=== PATIENT | male | born 1990 | race Caucasian/White ===

== ENCOUNTER 2019-01-30 20:34 | Emergency (ER) | payer OTHER ==
--- NOTE | 2019-01-30 22:01 | EKG REPORT ---
SEVERITY:- NORMAL ECG - SINUS RHYTHM : Confirmed by: Jovanny Thomas MD 30-Jan-2019 22:00:54
[2019-01-30 23:20] LABS: ABSOLUTE EOSINOPHILS # (AUTO) 0.2 10^3/uL (0.0-0.6); ABSOLUTE MONOCYTES (AUTO) 0.4 10^3/uL (0.1-1.4); ABSOLUTE NEUT (AUTO) 2.8 10^3/uL (1.7-8.2); BASOPHILS % (AUTO) 0.8 % (0-2); EOSINOPHILS % (AUTO) 3.3 % (0-6); HEMATOCRIT 39.9 % (37.9-51.0); HEMOGLOBIN 13.8 g/dL (13.5-17.0); LYMPHOCYTES % (AUTO) 37.2 % (13-45); MEAN CORPUSCULAR HEMOGLOBIN 30.5 pg (27.0-33.4); MEAN CORPUSCULAR HGB CONC 34.5 g/dL (32.0-36.0); MEAN CORPUSCULAR VOLUME 88 fl (80-97); MONOCYTES % (AUTO) 6.7 % (3-13); PLATELET COUNT 189 10^3/uL (150-450); RED BLOOD COUNT 4.52 10^6/uL (4.35-5.55); RED CELL DISTRIBUTION WIDTH 12.9 % (11.5-14.0); TOTAL CELLS COUNTED % (AUTO) 100 %; WHITE BLOOD COUNT 5.4 10^3/uL (4.0-10.5)
[2019-01-30 23:32] LABS: ALBUMIN 4.7 g/dL (3.5-5.0); ALCOHOL 131 mg/dL (NONE DETECTED); ALKALINE PHOSPHATASE 49 U/L (38-126); ANION GAP 13 (5-19); ASPARTATE AMINO TRANSFERASE 25 U/L (17-59); BILIRUBIN,DIRECT 0.2 mg/dL (0.0-0.4); BILIRUBIN,TOTAL 0.7 mg/dL (0.2-1.3); BLOOD UREA NITROGEN 10 mg/dL (7-20); CALCIUM 9.2 mg/dL (8.4-10.2); CARBON DIOXIDE 25 mmol/L (22-30); CHLORIDE 104 mmol/L (98-107); GLUCOSE 91 mg/dL (75-110); POTASSIUM 3.7 mmol/L (3.6-5.0)
[2019-01-30 23:35] LABS: ACETAMINOPHEN < 10 ug/mL (10-30); SALICYLATE < 1.0 mg/dL (2.0-20.0)
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
[2019-01-31 04:44] LABS: APPEARANCE,URINE CLEAR; BILIRUBIN,URINE NEGATIVE (NEGATIVE); COLOR,URINE YELLOW; GLUCOSE, URINE NEGATIVE (NEGATIVE); KETONES,URINE NEGATIVE (NEGATIVE); LEUKOCYTE ESTERASE,URINE NEGATIVE (NEGATIVE); NITRITE,URINE NEGATIVE (NEGATIVE); PROTEIN,URINE NEGATIVE (NEGATIVE); URINE SPECIFIC GRAVITY 1.013; UROBILINOGEN,URINE NEGATIVE mg/dL (<2.0)
[2019-01-31 04:48] LABS: URINE AMPHETAMINES SCREEN NEGATIVE; URINE BARBITURATES SCREEN NEGATIVE; URINE BENZODIAZEPINES SCREEN NEGATIVE; URINE COCAINE SCREEN NEGATIVE; URINE MARIJUANA (THC) SCREEN NEGATIVE; URINE METHADONE SCREEN NEGATIVE; URINE PHENCYCLIDINE SCREEN NEGATIVE
--- NOTE | 2019-01-31 10:37 | ER Document Report ---
Doctor's Note Notes: 01/31/19 10:35 Rounds: Heart reviewed and patient interviewed. Patient being evaluated for suicidal ideation and depression. He was drinking alcohol last night and had a loaded gun and was threatening to kill himself. He has a history of TBI and PTSD. Says he does not feel suicidal this morning. Wishes to go home to be with his and child. Vital signs are all normal. Lab studies were normal with the exception of his blood alcohol of 131. Patient appears to be medically stable for transfer or discharge. Jomar Meneses MD
[2019-01-31] MEDS: BUSPIRONE HCL 10 MG TABLET PO SCH (17:29)
[2019-01-31] MEDS: VENLAFAXINE HCL 37.5 MG CAP.SR.24H PO SCH (17:30)
[2019-01-31] MEDS ORDERED: CLONIDINE HCL 0.1 MG TABLET PO SCH (22:00)
[2019-02-01 06:37] VITALS: BP 113/61
[2019-02-01] MEDS: VENLAFAXINE HCL 37.5 MG CAP.SR.24H PO SCH (09:19)
[2019-02-01] MEDS: BUSPIRONE HCL 10 MG TABLET PO SCH (09:19)
--- NOTE | 2019-02-01 13:03 | PSYCHOLOGICAL NOTE ---
Psych Note - Psych Note Date seen by psych provider: 01/31/19 Psych Note: Presenting Problem: Patient reported Hx of PTSD, had SI thoughts while holding loaded gun in lap, walked in took gun and brought patient to the ED. Patient denied current SI and stated he just wanted to get home to his and 3 year old child. He reported "I just get like that sometimes because of [place]." Patient alert and oriented x5 with linear thinking, depressed mood with flat affect, able to answer questions accordingly, somewhat guarded and not forth coming. Diagnosis: 309.81 (F43.10) Posttraumatic Stress Disorder by Hx per patient Medication recommendations made by the psychiatric medical provider, Dr. Baljeet MD., includes: Add Effexor 37.5MG twice a day for depression/energy/focus Add Buspar 5MG twice a day for anxiety/calming effect/depression/sleep Add Clonidine 01.MG at night for calming effect/sleep Impression/Plan: Recommendation to maintain 24 Hour IVC Petition due to reported Hx PTSD, no treatment for it thus far, SI while holding loaded gun in lap. Consulted with Dr. Campbell regarding the management and care of patient. Attending ED Physician in agreement with recommendations.
--- NOTE | 2019-02-01 13:12 | PSYCHOLOGICAL NOTE ---
Psych Note - Psych Note Date seen by psych provider: 02/01/19 Time seen by psych provider: 09:56 - Chart review at 0807. collateral at 0956. Check in with patient at 1015. CPS contacted at 1239 (no answer) and 1312 (made report) Psych Note: Presenting Problem: Patient reported Hx of PTSD, had SI thoughts while holding loaded gun in lap, walked in took gun and brought patient to the ED. , Letty ([phone]) contacted for collateral and plan of care (patient provided contact information during yesterday's evaluation). She stated patient was home when he was sitting with the loaded gun, their 3 year old was home, was able to get the gun without issue/disassembled it immediately/it is currently with one of her family members, she denied any action taken by patient before but that he reported having SI thoughts/she stated had she known about the SI thoughts she would have removed gun before, she denied concern for SI now and identified family is coming to [facility] from [place], [place] to take him back (that is home and where his family is), he has natural support system, they will help to [facility] and they will be in charge of medications and administration. stated patient will be in [place] by the weekend. Patient stated he wants to go back to [place] and commented "we have been trying to get back but finances were not good, but now family is making it happen to help and be supportive." Patient alert and oriented x5 with linear thinking, he carried on more dialogue conversation today, mood was less depressed and affect brighter. Made CPS report to Skye Navarro. Diagnosis: 309.81 (F43.10) Posttraumatic Stress Disorder by Hx per patient Medication recommendations made by the psychiatric medical provider, Dr. Baljeet MD., includes: Provide scripts for medications administered while in the ED Effexor 37.5MG twice a day for depression/energy/focus Buspar 5MG twice a day for anxiety/calming effect/depression/sleep Clonidine 01.MG at night for calming effect/sleep Impression/Plan: Patient is cleared from acute psychiatric services. Recommendation to rescind 24 Hour IVC.
--- NOTE | 2019-02-01 14:39 | ER Document Report ---
Doctor's Note Notes: 02/01/19 14:38 Patient in no acute distress, eager to go home, family is willing to take him back to [place] where his entire family lives in his great support system. Patient willing to start taking medications including Effexor, BuSpar and clonidine. Patient enthusiastic about his prospects and very positive in his me ntal attitude. I do not see any reason not to rescind his IVC and discharge him home. Behavioral health is in agreement with this plan.
== END 2019-02-01 14:49 | disposition home or self-care (01) ==
LOC: ER 20:34
DX: R45.851 Suicidal ideations (principal); F32.9 Major depressive disorder, single episode, unspecified; F10.120 Alcohol abuse with intoxication, uncomplicated; Y90.6 Blood alcohol level of 120-199 mg/100 ml; Z87.820 Personal history of traumatic brain injury
CPT/HCPCS: 93005; 99285; 36415; 80307 ×4; 85025; 80053; 81001; 93010; J3490 ×2